=== PATIENT | female | born 1950 | race Caucasian/White ===

== ENCOUNTER → 2024-04-26 | Day surgery (SDC) | payer OTHER, MEDICARE | END | disposition home or self-care (01) | LOC: JRADUS-SUR 12:35 | PROVIDERS: ATTEND Obstetrics & Gynecology | PROC: 0H9U3ZX Drainage of Left Breast, Percutaneous Approach, Diagnostic (ICD-10-PCS; principal; 2024-04-26) | DX: N60.02 Solitary cyst of left breast (principal) | CPT/HCPCS: 19000; 76942-TC ==